=== PATIENT | female | born 1955 | race Caucasian/White ===

== ENCOUNTER → 2017-01-15 | Outpatient (CLI) | payer BC ==
[2017-01-15 11:51] LABS: Prolactin 10.5 ng/mL (3.0-18.6)
== END | disposition home or self-care (01) ==
LOC: LABWHC1 07:19
PROVIDERS: ATTEND Internal Medicine Endocrinology, Diabetes & Metabolism
DX: R53.83 Other fatigue (principal); E03.8 Other specified hypothyroidism
CPT/HCPCS: 36415; 82024; 82533; 82607; 84146; 84443

== ENCOUNTER → 2017-03-01 | Outpatient (CLI) | payer BC | END | disposition home or self-care (01) | LOC: LABWHC1 08:49 | PROVIDERS: ATTEND Internal Medicine Endocrinology, Diabetes & Metabolism | DX: E03.8 Other specified hypothyroidism (principal) | CPT/HCPCS: 36415; 84443 ==

== ENCOUNTER → 2017-05-03 | Outpatient (CLI) | payer BC | END | disposition home or self-care (01) | LOC: LABWHC1 09:14 | PROVIDERS: ATTEND Internal Medicine Endocrinology, Diabetes & Metabolism | DX: E03.8 Other specified hypothyroidism (principal) | CPT/HCPCS: 36415; 84443 ==

== ENCOUNTER → 2017-09-21 | Outpatient (CLI) | payer BC ==
--- NOTE | 2017-09-22 11:03 | MM ---
Reason for exam: screening (asymptomatic). Last mammogram was performed 1 year ago. History: Patient is postmenopausal. Took estrogen for 1 year 8 months. Took progesterone for 6 years. Physical Findings: A clinical breast exam by your physician is recommended on an annual basis and results should be correlated with mammographic findings. MG 3D Screening Mammo W/Cad Bilateral CC and MLO view(s) were taken. Prior study comparison: September 07, 2016, bilateral MG screening mammo w CAD. September 06, 2015, bilateral MG screening mammo w CAD. The breast tissue is heterogeneously dense. This may lower the sensitivity of mammography. Asymmetric breast tissue in the right breast is stable. No significant changes when compared with prior studies. ASSESSMENT: Benign, BI-RAD 2 RECOMMENDATION: Routine screening mammogram of both breasts in 1 year.
== END | disposition home or self-care (01) ==
LOC: RADMAMWWP 10:08
PROVIDERS: ATTEND Family Medicine
DX: Z12.31 Encounter for screening mammogram for malignant neoplasm of breast (principal)
CPT/HCPCS: 77063; G0202

== ENCOUNTER → 2018-04-26 | Outpatient (CLI) | payer BC | END | disposition home or self-care (01) | LOC: LABWHC1 09:41 | PROVIDERS: ATTEND Internal Medicine Endocrinology, Diabetes & Metabolism | DX: E03.8 Other specified hypothyroidism (principal) | CPT/HCPCS: 36415; 84443 ==

== ENCOUNTER → 2018-06-20 | Outpatient (CLI) | payer BC | END | disposition home or self-care (01) | LOC: LABWHC1 09:07 | PROVIDERS: ATTEND Internal Medicine Endocrinology, Diabetes & Metabolism | DX: E03.8 Other specified hypothyroidism (principal) | CPT/HCPCS: 36415; 84443 ==

== ENCOUNTER → 2018-06-21 | Outpatient (CLI) | payer BC | END | disposition home or self-care (01) | LOC: LABWHC1 15:27 | PROVIDERS: ATTEND Internal Medicine Endocrinology, Diabetes & Metabolism | DX: E05.00 Thyrotoxicosis with diffuse goiter without thyrotoxic crisis or storm (principal) | CPT/HCPCS: 36415; 84443; 84480; 84481 ==

== ENCOUNTER → 2018-06-22 | Outpatient (CLI) | payer BC ==
--- NOTE | 2018-06-22 16:09 | US ---
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 Hyperthyroidism GLAND SIZE: Right Lobe: 3.4 x 1.1 x 1.0 cm Overall Parenchyma: heterogenous Left Lobe: 3.7 x 1.2 x 1.1 cm Overall Parenchyma: heterogeneous Isthmus Thickness: 0.2 cm NODULES RIGHT: # of nodules measured on right: 0 LEFT: # of nodules measured on left: 0 ISTHMUS: # of nodules measured in the isthmus: 0 Bilateral neck scanned, no evidence of lymphadenopathy. IMPRESSION: Normal thyroid scan
== END | disposition home or self-care (01) ==
LOC: RADUSWWP 14:10
PROVIDERS: ATTEND Internal Medicine Endocrinology, Diabetes & Metabolism
DX: E05.00 Thyrotoxicosis with diffuse goiter without thyrotoxic crisis or storm (principal)
CPT/HCPCS: 76536

== ENCOUNTER → 2018-08-08 | Outpatient (CLI) | payer OTHER | LOC: LABWHC1 09:10 | PROVIDERS: ATTEND Internal Medicine Endocrinology, Diabetes & Metabolism | DX: E03.8 Other specified hypothyroidism (principal); E05.00 Thyrotoxicosis with diffuse goiter without thyrotoxic crisis or storm | CPT/HCPCS: 36415; 84443; 84481 ==

== ENCOUNTER → 2018-10-04 | Outpatient (CLI) | payer OTHER ==
--- NOTE | 2018-10-05 14:20 | MM ---
Reason for exam: screening (asymptomatic). Last mammogram was performed 1 year ago. History: Patient is postmenopausal. Took estrogen for 1 year 8 months. Took progesterone for 6 years. Physical Findings: A clinical breast exam by your physician is recommended on an annual basis and results should be correlated with mammographic findings. MG 3D Screening Mammo W/Cad Bilateral CC and MLO view(s) were taken. XCCL view(s) were taken of the right breast. Prior study comparison: September 21, 2017, bilateral MG 3d screening mammo w/cad. September 07, 2016, bilateral MG screening mammo w CAD. The breast tissue is heterogeneously dense. This may lower the sensitivity of mammography. No suspicious abnormality. No significant changes when compared with prior studies. ASSESSMENT: Negative, BI-RAD 1 RECOMMENDATION: Routine screening mammogram of both breasts in 1 year.
== END | disposition home or self-care (01) ==
LOC: RADMAMWWP 10:37
PROVIDERS: ATTEND Family Medicine
DX: Z12.31 Encounter for screening mammogram for malignant neoplasm of breast (principal)
CPT/HCPCS: 77063; 77067

== ENCOUNTER 2018-11-10 18:49 | Emergency (ER) | payer OTHER ==
[2018-11-10 19:08] VITALS: BP 155/85; PULSE 78; RESP 18; TEMP 98.3
--- NOTE | 2018-11-10 19:51 | ED ---
Female Urogenital HPI - General Chief complaint: Urogenital Stated complaint: blood in urine Time Seen by Provider: 11/10/18 19:15 Source: patient Mode of arrival: ambulatory Limitations: no limitations - History of Present Illness Initial comments: 63-year-old female patient presents to the emergency department today for evaluation of hematuria. Patient states that she was started on xarelto on 03/2019 after being diagnosed with atrial fibrillation. Patient states that she noticed blood in her urine starting this morning. States that she has not had any symptoms associated with this. She denies dysuria, urinary urgency, urinary frequency. She denies any suprapubic pain, back pain, or flank pain. Denies history of hematuria. She denies any hematochezia or melena. Patient denies any recent rash, fever, chills, shortness breath, chest pain, nausea, vomiting, diarrhea, constipation, back pain, numbness, tingling, dizziness, weakness, headache, visual changes, or any other complaints. - Related Data Home Medications Medication Instructions Recorded Confirmed Acetaminophen [Tylenol Extra 500 mg PO Q6H PRN 11/10/18 11/10/18 Strength] Budesonide/Formoterol Fumarate 2 puff INHALATION RT-BID PRN 11/10/18 11/10/18 [Symbicort 160-4.5 Mcg Inhaler] Calcium/Magnesium/Zinc 1 tab PO DAILY 11/10/18 11/10/18 [Nympjrj-Zwwxgqfom-Cvaj Tablet] Cholecalciferol (Vitamin D3) 2,000 unit PO DAILY 11/10/18 11/10/18 [Vitamin D3] Diltiazem Cd [Cardizem Cd] 180 mg PO DAILY 11/10/18 11/10/18 Ginkgo Biloba [place] Extract [Ginkgo] 120 mg PO BID 11/10/18 11/10/18 Inositol 650mg (Unknown) 1 tab PO BID 11/10/18 11/10/18 Loratadine [Claritin] 10 mg PO DAILY 11/10/18 11/10/18 Methimazole [Tapazole] 15 mg PO DAILY 11/10/18 11/10/18 Metoprolol Succinate (ER) [Toprol 50 mg PO DAILY 11/10/18 11/10/18 Xl] Potassium Chloride ER [K-Dur 20] 20 meq PO DAILY 11/10/18 11/10/18 Rivaroxaban [Xarelto] 20 mg PO DAILY 11/10/18 11/10/18 Vitamin B Complex 1 cap PO DAILY 11/10/18 11/10/18 Allergies Allergy/AdvReac Type Severity Reaction Status Date / Time verapamil Allergy Rash/Hives Verified 11/10/18 19:41 Review of Systems ROS Statement: Those systems with pertinent positive or pertinent negative responses have been documented in the HPI. ROS Other: All systems not noted in ROS Statement are negative. Past Medical History Past Medical History: Atrial Fibrillation, Thyroid Disorder Additional Past Medical History / Comment(s): che disease History of Any Multi-Drug Resistant Organisms: None Reported Past Surgical History: Adenoidectomy, Hysterectomy, Tonsillectomy Past Psychological History: Depression Smoking Status: Never smoker Past Alcohol Use History: Rare Past Drug Use History: None Reported General Exam Limitations: no limitations General appearance: alert, in no apparent distress, other (This is a well- developed, well-nourished adult female patient in no acute distress. Vital signs upon presentation are temperature 98.3F, pulse 78, respirations 18, blood pressure 155/85, pulse ox 99% on room air.) ENT exam: Present: mucous membranes moist Respiratory exam: Present: normal lung sounds bilaterally. Absent: respiratory distress, wheezes, rales, rhonchi, stridor Cardiovascular Exam: Present: regular rate, normal rhythm, normal heart sounds. Absent: systolic murmur, diastolic murmur, rubs, gallop, clicks GI/Abdominal exam: Present: soft, normal bowel sounds. Absent: distended, tenderness, guarding, rebound, rigid Back exam: Absent: CVA tenderness (R), CVA tenderness (L) Neurological exam: Present: alert, oriented X3, CN II-XII intact Psychiatric exam: Present: normal affect, normal mood Skin exam: Present: warm, dry, intact, normal color. Absent: rash Course Vital Signs 11/10/18 19:04 Temperature 98.3 F Pulse Rate 78 Respiratory 18 Rate Blood Pressure 155/85 O2 Sat by Pulse 99 Oximetry Medical Decision Making - Medical Decision Making 63 year-old female patient presented to the emergency department today for evaluation of hematuria. Patient did start taking Xarelto at the beginning of this month. She denied any urinary symptoms including dysuria, urinary frequency, urgency. Urinalysis was reviewed and did reveal 1+ protein, large amount of blood, small leukocyte esterase, greater than 182 red blood cells, 169 white blood cells. No bacteria was present. Patient has no symptoms and no bacteriocidal not treated for urinary tract infection but we will send this for culture. She is instructed to follow-up with urologist for further evaluation. We will call her and prescribe antibiotics if her culture is positive. Return parameters were discussed in detail. She verbalizes understanding and agrees with this plan. - Lab Data Lab Results 11/10/18 Range/Units 19:15 Urine Color Light Red Urine Appearance Clear (Clear) Urine pH 6.5 (5.0-8.0) Ur Specific [place] 1.014 (1.001-1.035) Urine Protein 1+ H (Negative) Urine Glucose (UA) Negative (Negative) Urine Ketones Negative (Negative) Urine Blood Large H (Negative) Urine Nitrite Negative (Negative) Urine Bilirubin Negative (Negative) Urine Urobilinogen <2.0 (<2.0) mg/dL Ur Leukocyte Esterase Small H (Negative) Urine RBC >182 H (0-5) /hpf Urine WBC 169 H (0-5) /hpf Disposition Clinical Impression: Hematuria Disposition: HOME SELF-CARE Condition: Good Instructions: Hematuria (ED) Additional Instructions: Increase fluids. Follow-up with urologist for further evaluation. Return to the emergency department immediately for any new, worsening, or concerning symptoms. Is patient prescribed a controlled substance at d/c from ED?: No Referrals: Renae Mendenhall DO [Primary Care Provider] - 1-2 days Irivn Ervin MD [STAFF PHYSICIAN] - 1-2 days Time of Disposition: 20:23
[2018-11-10 20:00] LABS: Appearance,Urine Clear (Clear); Bilirubin,Urine Negative (Negative); Blood,Urine Large (Negative); Color,Urine Light Red; Glucose,Urine (UA) Negative (Negative); Ketones,Urine Negative (Negative); Leukocyte Esterase,Urine Small (Negative); Nitrite,Urine Negative (Negative); PH, Urine 6.5 (5.0-8.0); Protein,Urine 1+ (Negative); RBC,Urine >182 /hpf (0-5); Specific Gravity,Urine 1.014 (1.001-1.035); Urobilinogen,Urine <2.0 mg/dL (<2.0); WBC,Urine 169 /hpf (0-5)
== END 2018-11-10 20:31 | disposition home or self-care (01) ==
LOC: EC 18:49
DX: R31.9 Hematuria, unspecified (principal); I48.91 Unspecified atrial fibrillation; F32.9 Major depressive disorder, single episode, unspecified; Z79.01 Long term (current) use of anticoagulants; Z79.899 Other long term (current) drug therapy; Z88.8 Allergy status to other drugs, medicaments and biological substances
CPT/HCPCS: 81001; 87086; 99283

== ENCOUNTER → 2018-12-20 | Outpatient (CLI) | payer OTHER ==
[2018-12-20 16:03] LABS: T4, Free (Free Thyroxine) 0.8 ng/dL (0.80-1.80)
== END ==
LOC: LABWHC1 10:40
PROVIDERS: ATTEND Internal Medicine Endocrinology, Diabetes & Metabolism
DX: E05.00 Thyrotoxicosis with diffuse goiter without thyrotoxic crisis or storm (principal)
CPT/HCPCS: 36415; 84439; 84443; 84480

== ENCOUNTER → 2019-01-25 | Outpatient (CLI) | payer OTHER ==
[2019-01-26 00:52] LABS: T4, Free (Free Thyroxine) 0.7 ng/dL (0.80-1.80)
== END ==
LOC: LABWHC1 12:16
PROVIDERS: ATTEND Internal Medicine Endocrinology, Diabetes & Metabolism
DX: E05.00 Thyrotoxicosis with diffuse goiter without thyrotoxic crisis or storm (principal)
CPT/HCPCS: 36415; 84439; 84443; 84480

== ENCOUNTER → 2019-03-01 | Outpatient (CLI) | payer OTHER ==
[2019-03-02 03:32] LABS: T4, Free (Free Thyroxine) 1.5 ng/dL (0.80-1.80)
== END | disposition home or self-care (01) ==
LOC: LABWHC1 16:20
PROVIDERS: ATTEND Physician Assistant
DX: E03.9 Hypothyroidism, unspecified (principal)
CPT/HCPCS: 36415; 84439; 84443; 84480; 86735; 86762; 86765

== ENCOUNTER → 2019-03-28 | Outpatient (CLI) | payer OTHER ==
[2019-03-28 10:17] LABS: HCT 49.5 % (34.0-46.0); HGB 15.8 gm/dL (11.4-16.0); MCH 29.8 pg (25.0-35.0); MCHC 31.8 g/dL (31.0-37.0); MCV 93.5 fL (80.0-100.0); Mean Platelet Volume 7.5; Platelet Count 234 k/uL (150-450); RDW 14.1 % (11.5-15.5); WBC 9.2 k/uL (3.8-10.6)
[2019-03-28 10:38] LABS: Ionized Calcium 5.5 mg/dL (4.5-5.3)
[2019-03-28 16:14] LABS: Vitamin D 25 Hydroxy 37.6 ng/mL (30.0-100.0)
[2019-03-28 16:59] LABS: Parathyroid Hormone Intact 31.7 pg/mL (14.0-72.0)
[2019-03-28 17:07] LABS: African American GFR (CKD) 68.5 (60.0-200.0); Albumin 4.6 g/dL (3.80-4.90); Albumin/Globulin Ratio 2.42 (1.60-3.17); Calcium 10.3 mg/dL (8.7-10.3); Globulin 1.9 g/dL (1.6-3.3); Potassium 3.4 mmol/L (3.5-5.5); Total Bilirubin 0.6 mg/dL (0.3-1.2); Total Protein 6.5 g/dL (6.2-8.2)
[2019-03-28 17:32] LABS: T4, Free (Free Thyroxine) 2.5 ng/dL (0.80-1.80)
== END ==
LOC: LABWHC1 09:23
PROVIDERS: ATTEND Physician Assistant Medical
DX: E05.01 Thyrotoxicosis with diffuse goiter with thyrotoxic crisis or storm (principal); E83.52 Hypercalcemia; I48.91 Unspecified atrial fibrillation
CPT/HCPCS: 36415; 80053; 82306; 82330; 83970; 84439; 84443; 84480; 85027

== ENCOUNTER → 2019-05-29 | Outpatient (CLI) | payer OTHER ==
[2019-05-29 14:56] LABS: HCT 45.4 % (34.0-46.0); HGB 15.2 gm/dL (11.4-16.0); MCH 31.2 pg (25.0-35.0); MCHC 33.5 g/dL (31.0-37.0); MCV 93.1 fL (80.0-100.0); Mean Platelet Volume 7.7; Platelet Count 239 k/uL (150-450); RBC 4.88 m/uL (3.80-5.40); RDW 12.7 % (11.5-15.5); WBC 6.4 k/uL (3.8-10.6)
[2019-05-29 19:04] LABS: ALT 17 U/L (8-44); AST 22 U/L (13-35); Alkaline Phosphatase 75 U/L (41-126); Bilirubin, Conjugated <0.20 mg/dL (0.20-0.40); Globulin 1.5 g/dL (1.6-3.3); Total Bilirubin 0.2 mg/dL (0.2-1.2)
== END | disposition home or self-care (01) ==
LOC: LABWHC1 14:22
PROVIDERS: ATTEND Internal Medicine
DX: E05.90 Thyrotoxicosis, unspecified without thyrotoxic crisis or storm (principal)
CPT/HCPCS: 36415; 80076; 84439; 84443; 84481; 85027

== ENCOUNTER → 2019-06-28 | Outpatient (CLI) | payer MEDICARE ==
[2019-06-28 17:40] LABS: T4, Free (Free Thyroxine) 0.8 ng/dL (0.80-1.80)
== END | disposition home or self-care (01) ==
LOC: LABWHC1 07:49
PROVIDERS: ATTEND Internal Medicine
DX: E05.90 Thyrotoxicosis, unspecified without thyrotoxic crisis or storm (principal)
CPT/HCPCS: 36415; 84439; 84443; 84481

== ENCOUNTER → 2019-08-16 | Outpatient (CLI) | payer MEDICARE ==
[2019-08-16 16:16] LABS: T4, Free (Free Thyroxine) 1.6 ng/dL (0.80-1.80)
== END | disposition home or self-care (01) ==
LOC: LABWHC1 09:24
PROVIDERS: ATTEND Internal Medicine
DX: E03.9 Hypothyroidism, unspecified (principal)
CPT/HCPCS: 36415; 84439; 84443

== ENCOUNTER → 2019-10-12 | Outpatient (CLI) | payer MEDICARE ==
[2019-10-12 19:14] LABS: T4, Free (Free Thyroxine) 1.8 ng/dL (0.80-1.80)
== END | disposition home or self-care (01) ==
LOC: LABWHC1 13:31
PROVIDERS: ATTEND Internal Medicine
DX: E03.9 Hypothyroidism, unspecified (principal)
CPT/HCPCS: 36415; 84439; 84443

== ENCOUNTER → 2019-10-24 | Outpatient (CLI) | payer MEDICARE ==
--- NOTE | 2019-10-26 13:28 | MM ---
Reason for exam: screening (asymptomatic). Last mammogram was performed 1 year and 1 month ago. History: Patient is postmenopausal. Took estrogen for 1 year 8 months. Took progesterone for 6 years. Physical Findings: A clinical breast exam by your physician is recommended on an annual basis and results should be correlated with mammographic findings. MG 3D Screening Mammo W/Cad Bilateral CC and MLO view(s) were taken. XCCL view(s) were taken of the right breast. Prior study comparison: October 04, 2018, bilateral MG 3d screening mammo w/cad. September 21, 2017, bilateral MG 3d screening mammo w/cad. The breast tissue is heterogeneously dense. This may lower the sensitivity of mammography. No suspicious abnormality. Stable right upper outer quadrant posterior depth focal asymmetry back to 2014. No significant changes when compared with prior studies. ASSESSMENT: Benign, BI-RAD 2 RECOMMENDATION: Routine screening mammogram of both breasts in 1 year.
== END | disposition home or self-care (01) ==
LOC: RADMAMWWP 09:26
PROVIDERS: ATTEND Family Medicine
DX: Z12.31 Encounter for screening mammogram for malignant neoplasm of breast (principal)
CPT/HCPCS: 77063; 77067

== ENCOUNTER → 2019-12-26 | Outpatient (CLI) | payer MEDICARE | END | disposition home or self-care (01) | LOC: LABWHC1 08:58 | PROVIDERS: ATTEND Internal Medicine | DX: E03.9 Hypothyroidism, unspecified (principal) | CPT/HCPCS: 36415; 84439; 84443 ==

== ENCOUNTER → 2021-02-10 | Outpatient (CLI) | payer MEDICARE ==
--- NOTE | 2021-02-12 09:21 | MM ---
Reason for exam: screening (asymptomatic). Last mammogram was performed 1 year and 4 months ago. History: Patient is postmenopausal. Took estrogen for 1 year 8 months. Took progesterone for 6 years. Physical Findings: A clinical breast exam by your physician is recommended on an annual basis and results should be correlated with mammographic findings. MG 3D Screening Mammo W/Cad Bilateral CC and MLO view(s) were taken. Prior study comparison: October 24, 2019, bilateral MG 3d screening mammo w/cad. October 04, 2018, bilateral MG 3d screening mammo w/cad. The breast tissue is heterogeneously dense. This may lower the sensitivity of mammography. Global asymmetry right upper outer quadrant is unchanged. Possible faint grouped calcifications anterior inferior right MLO view. ASSESSMENT: Incomplete: need additional imaging evaluation, BI-RAD 0 RECOMMENDATION: Special view mammogram of the right breast. (magnification) If lesion persists on supplemental views, image directed ultrasound is recommended. [facility] will attempt to contact patient to return for supplemental views and ultrasound if indicated.
== END | disposition home or self-care (01) ==
LOC: RADMAMWWP 14:50
PROVIDERS: ATTEND Family Medicine
DX: Z12.31 Encounter for screening mammogram for malignant neoplasm of breast (principal); Z78.0 Asymptomatic menopausal state
CPT/HCPCS: 77063; 77067

== ENCOUNTER → 2021-02-19 | Outpatient (CLI) | payer MEDICARE ==
--- NOTE | 2021-02-20 10:30 | MM ---
Reason for exam: additional evaluation requested from abnormal screening. Last mammogram was performed less than 1 month ago. History: Patient is postmenopausal. Took estrogen for 1 year 8 months. Took progesterone for 6 years. Physical Findings: Nurse did not find any significant physical abnormalities on exam. MG 3D Work Up W/Cad RT CC with magnification and ML with magnification view(s) were taken of the right breast. Prior study comparison: February 10, 2021, bilateral MG 3d screening mammo w/cad. October 24, 2019, bilateral MG 3d screening mammo w/cad. There is no discrete abnormality including area of concern. These results were verbally communicated with the patient and result sheet given to the patient on 02/19/21. ASSESSMENT: Negative, BI-RAD 1 RECOMMENDATION: Return to routine screening mammogram schedule for both breasts.
== END | disposition home or self-care (01) ==
LOC: RADMAMWWP 14:56
PROVIDERS: ATTEND Family Medicine
DX: R92.8 Other abnormal and inconclusive findings on diagnostic imaging of breast (principal)
CPT/HCPCS: 77065; G0279; 77061

== ENCOUNTER → 2023-03-15 | Outpatient (CLI) | payer MEDICARE ==
--- NOTE | 2023-03-16 08:23 | MM ---
Reason for Exam: Screening (asymptomatic). Last screening mammogram was performed 12 month(s) ago. Patient History: Menarche at age 12. First Full-Term at age 17. Hysterectomy at age 46. Postmenopausal. Estrogen for 1 year, 8 months. Patient used Progesterone for 6 years. Risk Values: Hawa 5 year model risk: 1.1%. NCI Lifetime model risk: 3.5%. Prior Study Comparison: 02/10/2021 Bilateral Screening Mammogram, [facility]. 02/19/2021 Right Diagnostic Mammogram, [facility]. 03/13/2022 Bilateral MG 3D screening mammo w/cad, [facility]. Tissue Density: The breast tissue is heterogeneously dense. This may lower the sensitivity of mammography. Findings: Analyzed By CAD. There is no suspicious group of microcalcifications or new suspicious mass in either breast. Overall Assessment: Negative, BI-RAD 1 Management: Screening Mammogram of both breasts in [address] [facility] will attempt to contact patient to return for supplemental views and ultrasound if indicated. Patient should continue monthly self-breast exams. A clinical breast exam by your physician is recommended on an annual basis. This exam should not preclude additional follow-up of suspicious palpable abnormalities. Note on Hawa scores and lifetime risk: 1. A Hawa score greater than 3% is considered moderate risk. If this is the case, consider specialist referral to assess eligibility for a risk reducing agent. 2. If overall lifetime risk for the development of breast cancer is 20% or higher, the patient may qualify for future screening with alternating mammogram and breast MRI. Electronically signed and approved by: Marcel Young DO
== END | disposition home or self-care (01) ==
LOC: RADMAMWWP 08:10
PROVIDERS: ATTEND Family Medicine
DX: Z12.31 Encounter for screening mammogram for malignant neoplasm of breast (principal); Z78.0 Asymptomatic menopausal state
CPT/HCPCS: 77063; 77067

== ENCOUNTER → 2024-01-06 | Outpatient (CLI) | payer MEDICARE ==
[2024-01-06 11:34] LABS: HCT 41.8 % (37.2-46.3); MCH 31.3 pg (27.0-32.0); MCHC 33.5 g/dL (32.0-37.0); MCV 93.5 FL (80.0-97.0); NRBC Per 100 WBC 0 X 10*3/uL (0.00-0.01); Platelet Count 213 X 10*3/uL (140-440); RBC 4.47 X 10*6/uL (4.10-5.20); RDW 12.5 % (11.5-14.5); WBC 5.13 X 10*3/uL (4.50-10.00)
[2024-01-06 11:56] LABS: % Iron Saturation 47.93 (12.00-45.00); ALT 19 U/L (8-44); AST 28 U/L (13-35); Albumin 4.4 g/dL (3.8-4.9); Alkaline Phosphatase 59 U/L (41-126); Blood Urea Nitrogen 18.2 mg/dL (9.0-27.0); Calcium 9.8 mg/dL (8.7-10.3); Chloride 104 mmol/L (96-109); Chol/HDL Ratio 2.35 Ratio; Ferritin 95.1 ng/mL (10.0-291.0); Globulin 2.1 g/dL (1.6-3.3); Glucose 84 mg/dL (70-110); Iron 139 UG/DL (50-170); LDL Cholesterol,Calculated 99.8 mg/dL (0.0-131.0); Potassium 3.9 mmol/L (3.5-5.5); Sodium 141 mmol/L (135-145); T4, Free (Free Thyroxine) 1.58 ng/dL (0.80-1.80); Total Bilirubin 0.4 mg/dL (0.3-1.2); Total Iron Binding Capacity 290 UG/DL (228-460); Total Protein 6.5 g/dL (6.2-8.2); VLDL Calculation 14.98 mg/dL (5.00-40.00)
== END | disposition home or self-care (01) ==
LOC: LABWHC1 07:29
PROVIDERS: ATTEND Family Medicine
DX: I48.91 Unspecified atrial fibrillation (principal); E03.9 Hypothyroidism, unspecified; E83.119 Hemochromatosis, unspecified
CPT/HCPCS: 36415; 80053; 80061; 82728; 83540; 83550; 84439; 84443; 84481; 85027

== ENCOUNTER → 2024-10-12 | Outpatient (CLI) | payer MEDICARE ==
[2024-10-12 15:26] LABS: T4, Free (Free Thyroxine) 1.55 ng/dL (0.80-1.80)
== END | disposition home or self-care (01) ==
LOC: LABWHC1 07:12
PROVIDERS: ATTEND Internal Medicine
DX: E03.9 Hypothyroidism, unspecified (principal)
CPT/HCPCS: 36415; 84439; 84443

== ENCOUNTER → 2025-04-12 | Outpatient (CLI) | payer MEDICARE ==
--- NOTE | 2025-04-12 08:12 | MM ---
Reason for Exam: Screening (asymptomatic). Last mammogram was performed 1 year(s) and 1 month(s) ago. Patient History: Menarche at age 12. First Full-Term at age 17. Hysterectomy at age 46. Postmenopausal. Estrogen for 1 year, 8 months. Patient used Progesterone for 6 years. Risk Values: Hawa 5 year model risk: 1.1%. NCI Lifetime model risk: 3.2%. Prior Study Comparison: 03/13/2022 Bilateral MG 3D screening mammo w/cad, [facility]. 03/15/2023 Bilateral MG 3D screening mammo w/cad, [facility]. 03/16/2024 Bilateral MG 3D screening mammo w/cad, [facility]. Tissue Density: The breasts are heterogeneously dense, which may obscure small masses. Findings: Analyzed By CAD. Unchanged global asymmetry posterior upper outer quadrant right breast. Other areas of asymmetric density are also unchanged. There is no suspicious group of microcalcifications or new suspicious mass in either breast. Overall Assessment: Benign, BI-RAD 2 Management: Screening Mammogram of both breasts in 1 year. Patient should continue monthly self-breast exams. A clinical breast exam by your physician is recommended on an annual basis. This exam should not preclude additional follow-up of suspicious palpable abnormalities. Note on Hawa scores and lifetime risk: 1. A Hawa score greater than 3% is considered moderate risk. If this is the case, consider specialist referral to assess eligibility for a risk reducing agent. 2. If overall lifetime risk for the development of breast cancer is 20% or higher, the patient may qualify for future screening with alternating mammogram and breast MRI. [facility], , 04/12/2025 8:09 AM. Electronically signed and approved by: Corey Simon M.D. Radiologist
[2025-04-12 10:11] LABS: HCT 45.1 % (37.2-46.3); MCH 30.8 pg (27.0-32.0); MCHC 33.3 g/dL (32.0-37.0); MCV 92.6 FL (80.0-97.0); Mean Platelet Volume 11.3 FL (9.5-12.2); NRBC Per 100 WBC 0 X 10*3/uL (0.00-0.01); Platelet Count 232 X 10*3/uL (140-440); RBC 4.87 X 10*6/uL (4.10-5.20); RDW 12.9 % (11.5-14.5); WBC 5.57 X 10*3/uL (4.50-10.00)
[2025-04-12 10:39] LABS: % Iron Saturation 47.08 (12.00-45.00); ALT 39 U/L (8-44); AST 45 U/L (13-35); Albumin 4.4 g/dL (3.8-4.9); Alkaline Phosphatase 62 U/L (41-126); BUN/Creat Ratio 19.25 Ratio (12.00-20.00); Blood Urea Nitrogen 15.4 mg/dL (9.0-27.0); Calcium 9.4 mg/dL (8.7-10.3); Carbon Dioxide 25.8 mmol/L (21.6-31.8); Chloride 105 mmol/L (96-109); Chol/HDL Ratio 2.63 Ratio; Globulin 2.2 g/dL (1.6-3.3); Glucose 88 mg/dL (70-110); Iron 129 UG/DL (50-170); LDL Cholesterol,Calculated 121.1 mg/dL (0.0-131.0); Potassium 3.9 mmol/L (3.5-5.5); Sodium 142 mmol/L (135-145); T4, Free (Free Thyroxine) 1.45 ng/dL (0.80-1.80); Total Bilirubin 0.4 mg/dL (0.3-1.2); Total Iron Binding Capacity 274 UG/DL (228-460); Total Protein 6.6 g/dL (6.2-8.2)
== END | disposition home or self-care (01) ==
LOC: RADMAMWWP 07:14
PROVIDERS: ATTEND Family Medicine
DX: Z12.31 Encounter for screening mammogram for malignant neoplasm of breast (principal); R92.333 Mammographic heterogeneous density, bilateral breasts; Z78.0 Asymptomatic menopausal state
CPT/HCPCS: 77063; 77067; 80053; 80061; 82728; 83540; 83550; 84439; 84443; 84481; 85027